=== PATIENT | female | born 1960 | race Caucasian/White ===

== ENCOUNTER 2016-06-21 09:04 | Day surgery (SDC) | payer MEDICAID ==
[~2016-06-21] VITALS: Ht 157.5 cm; Wt 55.6 kg
--- NOTE | 2016-06-23 08:03 | OR ---
ADMIT: 06/21/2016 RM/LOC: [facility] MR#: [id number] [address] [place] [address] Operative/Delivery Room Report SEX: F AGE: 55 : 1960 SURGERY DATE: 06/21/2016 SURGEON: Quang Hartmann MD PREOPERATIVE DIAGNOSES: 1. Lumbar post laminectomy syndrome. 2. Chronic pain syndrome. 3. Lumbar radiculopathy. POSTOPERATIVE DIAGNOSES: 1. Lumbar post laminectomy syndrome. 2. Chronic pain syndrome. 3. Lumbar radiculopathy. OPERATION: Two lead/16 contact spinal cord stimulator trial. ANESTHESIA: Local with sedation. COMPLICATIONS: None. BRIEF INDICATIONS: The patient is a pleasant female with history of chronic low back pain with radicular symptoms, comes here for planned cord stimulator trial. DESCRIPTION OF PROCEDURE: After informed consent was obtained, the patient was taken to the operative suite and placed in the prone position. Non- invasive anesthesia monitoring was placed. The skin over the lumbar spine was prepped and draped in a sterile fashion using ChloraPrep. A 14-gauge [employer] epidural needle was advanced through a stab incision through anesthetized skin. The needle was advanced at the low paramedian angle entering the lumbar spine at the L1-L2 level. The epidural needle was then advanced into L1-L2 ADMIT: 06/21/2016 RM/LOC: [facility] MR#: [id number] [address] [place] [address] Operative/Delivery Room Report SEX: F AGE: 55 : 1960 interspace using continuous loss of resistance to saline, and once the loss of resistance was noted, the guidewire was introduced into the epidural space. Next, a [employer] spinal stimulator lead was placed into the epidural space and advanced with tips on top of T8 in a staggered position. Please see dimension in the chart for this. Next, the stimulation was undertaken by a [employer] business banking representative. He got good coverage with the middle of the lead across the T9 vertebral body. This was covering the bilateral hip, thigh and back. Stylus was removed and the epidural needle was removed. Then, leads were taped into place and hooked into the electronic connector. The patient tolerated the procedure very well and gave good feedback. There were no complications. There was no blood loss. We will see the patient back in approximately three to four days for lead removal. Quang Hartmann MD/ khadijah JOB #: [id number] CC: Quang Hartmann, Attending Physician NO FAMILY PHYSICIAN, Family Physician
== END 2016-06-21 13:01 | disposition home or self-care (01) ==
LOC: SSS 09:04
PROC: 00HU3MZ Insertion of Neurostimulator Lead into Spinal Canal, Percutaneous Approach (ICD-10-PCS; principal; 2016-06-21)
DX: G89.4 Chronic pain syndrome (principal); M96.1 Postlaminectomy syndrome, not elsewhere classified; M54.10 Radiculopathy, site unspecified; M51.36 Other intervertebral disc degeneration, lumbar region; M54.16 Radiculopathy, lumbar region; E11.9 Type 2 diabetes mellitus without complications; F31.9 Bipolar disorder, unspecified; F17.200 Nicotine dependence, unspecified, uncomplicated; Z79.899 Other long term (current) drug therapy; Z88.0 Allergy status to penicillin

== ENCOUNTER → 2016-07-14 | Outpatient (CLI) | payer MEDICAID | END | disposition home or self-care (01) | LOC: PTH.S 07-12 09:30 | DX: Z51.81 Encounter for therapeutic drug level monitoring (principal); Z79.899 Other long term (current) drug therapy ==